=== PATIENT | female | born 1960 | race Caucasian/White ===

== ENCOUNTER 2017-03-17 15:07 | Emergency (ER) | payer SELFPAY | END 2017-03-17 16:11 | disposition home or self-care (01) | LOC: ERS 15:07 | DX: K64.9 Unspecified hemorrhoids (principal); E03.9 Hypothyroidism, unspecified; K58.9 Irritable bowel syndrome, unspecified | CPT/HCPCS: 99283 ==

== ENCOUNTER 2018-08-10 12:03 | Emergency (ER) | payer SELFPAY ==
[2018-08-10] MEDS ORDERED: Fentanyl 100 MCG/2 ML VIAL ONE ×2 (13:11→14:44)
[2018-08-10] MEDS ORDERED: Ondansetron PF 4 MG/2 ML Vial ONE (13:11)
--- NOTE | 2018-08-10 14:29 | RAD ---
Exam:4 views left knee HISTORY: Pain. Injury. COMPARISON: None FINDINGS: No joint effusion. Joint spaces are preserved. No fracture or malalignment. IMPRESSION: Unremarkable left knee 4 views
[2018-08-10] MEDS ORDERED: Ketorolac Tromethamine 30 MG/ML VIAL ONE (14:44)
--- NOTE | 2018-08-10 14:50 | RAD ---
RIGHT WRIST THREE VIEWS: 08/10/18 COMPARISON: 02/10/14 HISTORY: Fall. Pain. FINDINGS: Comminuted, displaced distal radius fracture with intra-articular extension of the fracture. There is associated deformity. With regard to the carpal bones, a definite fracture is not appreciated. IMPRESSION: Distal radius fracture. POS: [facility]
--- NOTE | 2018-08-10 16:05 | RAD ---
RIGHT KNEE 4 VIEWS: HISTORY: Injury, right knee pain. FINDINGS/IMPRESSION: No fracture or dislocation is seen. No joint effusion or hemarthrosis is identified. POS: [facility]
== END 2018-08-10 16:37 | disposition home or self-care (01) ==
LOC: ERS 12:03
DX: S52.571A Other intraarticular fracture of lower end of right radius, initial encounter for closed fracture (principal); S80.212A Abrasion, left knee, initial encounter; S80.211A Abrasion, right knee, initial encounter; W18.30XA Fall on same level, unspecified, initial encounter
CPT/HCPCS: 29125; 96361; 96374; 96375; 96376; J1885; J2405; J3010

== ENCOUNTER 2018-08-11 09:27 | Emergency (ER) | payer SELFPAY ==
--- NOTE | 2018-08-11 12:23 | RAD ---
LEFT ELBOW FOUR VIEWS: 08/11/18 HISTORY: Fall. Pain. Injury. COMPARISON: None. FINDINGS: No fracture. No cortical irregularity or periosteal reaction. Joint spaces are preserved. No joint ef fusion. IMPRESSION: No posttraumatic change. POS: [facility]
== END 2018-08-11 11:10 | disposition home or self-care (01) ==
LOC: ERS 09:27
DX: M25.522 Pain in left elbow (principal); S52.501D Unspecified fracture of the lower end of right radius, subsequent encounter for closed fracture with routine healing

== ENCOUNTER 2018-08-15 08:59 | Day surgery (SDC) | payer SELFPAY ==
[2018-08-12 11:29] VITALS: BMI 21.4
[2018-08-15] MEDS ORDERED: Midazolam HCl 2 mg/2 ml Vial ONE (10:21)
[2018-08-15] MEDS ORDERED: Fentanyl 100 MCG/2 ML VIAL ONE ×2 (10:22→12:02)
[2018-08-15] MEDS ORDERED: Bupivacaine HCl 0.5%/Epinephrine 1:200,000/PF 30 ml Vial ONE (10:27)
[2018-08-15] MEDS ORDERED: Dexamethasone 4 mg/ml Vial ONE (10:53)
[2018-08-15] MEDS ORDERED: Lidocaine 1% PF 5 ML VIAL ONE (11:14)
[2018-08-15] MEDS ORDERED: PROPOFOL 200 MG/20 ML VIAL ONE (11:14)
[2018-08-15] MEDS ORDERED: ePHEDrine 50 MG/ML VIAL ONE (11:14)
[2018-08-15] MEDS ORDERED: Ondansetron PF 4 MG/2 ML Vial ONE (11:14)
[2018-08-15] MEDS ORDERED: Dexamethasone 20 MG/5 ML VIAL ONE (11:14)
[2018-08-15] MEDS ORDERED: Ketorolac Tromethamine 30 MG/ML VIAL ONE (11:14)
[2018-08-15] MEDS ORDERED: Promethazine HCl 25 MG/ML VIAL ONE (12:02)
--- NOTE | 2018-08-15 14:03 | RAD ---
Exam: Right elbow 2 views: HISTORY: Status post ORIF distal right radius FINDINGS: Metal plate and screws are placed stabilizing the distal radial fracture with improved position and a lignment. Nondisplaced ulnar styloid process fracture. IMPRESSION: Improved position and alignment following ORIF right radius.
--- NOTE | 2018-08-15 15:18 | OP ---
DATE OF PROCEDURE: 08/15/2018 PREOPERATIVE DIAGNOSES: 1. Right distal radius fracture, volar. 2. Right carpal tunnel syndrome. POSTOPERATIVE DIAGNOSES: 1. Right distal radius fracture, volar. 2. Right carpal tunnel syndrome. PROCEDURES PERFORMED: 1. Open reduction and internal fixation of right distal radius fracture. 2. Right carpal tunnel release. ANESTHESIA: General. TOURNIQUET TIME: 43 minutes at 250 mmHg. IMPLANTS: Synthes 3-hole 2.4 mm variable angle LCP dual-column volar distal radial plate. COMPLICATIONS: None. DRAINS: None. SPECIMENS: None. OUTCOME: Near-anatomic alignment. INDICATIONS FOR PROCEDURE: The patient is a 58-year-old lady, status post ground level fall sustaining right distal radius fracture. This was found to be a volar displaced fracture originally seen in the emergency room. The patient now taken to the operating room for open reduction and internal fixation for this intra-articular displaced fracture. Preoperatively, the patient also found to have an acute carpal tunnel syndrome with two-point discrimination greater than 15 mm over the median distribution. As such, we will take a look at and possibly release the carpal tunnel at the same time. Informed consent has been obtained. DESCRIPTION OF PROCEDURE: The patient was brought to the operating room and a time-out performed followed by induction of general anesthesia. Next, a sterile prep and drape was performed of the right upper extremity. Next, a curvilinear incision was made following the thenar skin crease and then extending down the volar radial aspect of the wrist. After the skin was sharply incised, dissection was carried down bluntly identifying the neurovascular bundle and reflecting it radially. The palmar fascia was split in line with the skin incision and then the transverse carpal ligament was identified. This was divided with a [place] blade, exposing the underlying median nerve and the thenar branch. Once decompressed, the dissection was then carried further proximally exploiting the interval between the brachioradialis and the flexor carpi radialis. Dissection was carried down to the underlying pronator quadratus. This was released off the radial border of the distal radius and reflected to the midline exposing the underlying fracture. The fracture hematoma was removed from the wound and the edges freed of soft tissue. The fracture was then reduced and held in place manually while AP and lateral C-arm images were obtained to confirm that the fracture could be reduced. Next, a 3-hole plate was applied to the volar cortex of the distal radius. This was held in place with a 2.7-mm cortical screw in the shaft of the plate, getting good compression across the fracture site. Next, a total of four 2.4-mm locking screws were applied across the horizontal limb of the plate and then two additional 2.7 mm screws applied more proximally. AP and lateral C-arm images were obtained with hoahaoism of radial length, radial inclination and volar tilt. The wound was then irrigated with normal saline and closed in layers with 2-0 Vicryl subcutaneously followed by nylon for the skin, both at the carpal tunnel release site as well as at the distal radius fixation site. Next, a Xeroform gauze, Webril, and fiberglass volar splint was applied to the wrist. Tourniquet was let down with total time of 43 minutes. Then, the patient was transferred to recovery room in stable condition. There were no complications. The patient tolerated the procedure well. Job ID: [id number]
== END 2018-08-15 15:55 | disposition home or self-care (01) ==
LOC: SDC 08:59
PROVIDERS: ATTEND Orthopaedic Surgery
PROC: 3E0T33Z Introduction of Anti-inflammatory into Peripheral Nerves and Plexi, Percutaneous Approach (ICD-10-PCS; principal; 2018-08-15)
PROC: 0PSH04Z Reposition Right Radius with Internal Fixation Device, Open Approach (ICD-10-PCS; principal; 2018-08-15)
PROC: 3E0T3BZ Introduction of Anesthetic Agent into Peripheral Nerves and Plexi, Percutaneous Approach (ICD-10-PCS; principal; 2018-08-15)
PROC: 01N50ZZ Release Median Nerve, Open Approach (ICD-10-PCS; principal; 2018-08-15)
DX: S52.571A Other intraarticular fracture of lower end of right radius, initial encounter for closed fracture (principal); S52.614A Nondisplaced fracture of right ulna styloid process, initial encounter for closed fracture; G56.01 Carpal tunnel syndrome, right upper limb; G89.18 Other acute postprocedural pain; W19.XXXA Unspecified fall, initial encounter
CPT/HCPCS: 76000; C1713; J0670; J0690; J1100; J1885; J2001; J2250; J2405; J2550; J2704; J3010; J3490

== ENCOUNTER 2018-11-26 15:29 | Emergency (ER) | payer OTHER ==
[2018-11-26 15:52] LABS: #Basophils 0.1 thou/uL (0.0-0.2); #Eosinphils 0.2 thou/uL (0.0-0.7); #Lymphocytes 1.6 thou/uL (1.20-3.40); #Monocytes 0.4 thou/uL (0.11-0.59); %Basophils 1.1 % (0.0-1.0); %Eosinophils 3.9 % (0.0-10.0); %Lymphocytes 25.6 % (21.0-51.0); %Monocytes 5.8 % (0.0-10.0); %Neutrophils 63.5 % (42.0-75.0); Mean Corpuscular HGB CONC 33.8 g/dL (32.0-36.0); Mean Corpuscular Hemoglobin 29.5 pg (27.0-31.0); Mean Corpuscular Volume 87.4 fL (78.0-98.0); Mean Platelet Volume 8.6 fL (7.4-10.4); Platelet Count 249 thou/uL (130-400); RBC Distribution Width 12.1 % (11.5-14.5); Red Blood Cell (RBC) Count 4.74 mill/uL (4.20-5.40); White Blood Cell (WBC) Count 6.2 thou/uL (4.8-10.8)
[2018-11-26 16:00] LABS: Bacteria/HPF None Seen HPF (None Seen); Bilirubin Negative (Negative); Blood, Urine 1+ (Negative); Clarity Clear (Clear); Glucose, Urine (Dipstick) Normal (Negative); Leukocyte Negative Leu/uL (Negative); Mucous/LPF Rare LPF (<2+); Nitrite Negative (Negative); Protein, Urine (Dipstick) Negative (Neg-Trace); Squamous Epithelial 0-3 HPF (0-3); Urobilinogen Normal mg/dL (Less than 2); WBC/HPF 0-3 HPF (0-3)
[2018-11-26 16:14] LABS: ALT (SGPT) 8 U/L (8-55); AST (SGOT) 17 U/L (5-34); Albumin 4.4 g/dL (3.5-5.0); Alkaline Phosphatase 98 U/L (40-110); Anion Gap 14 mmol/L (10-20); BUN (Urea Nitrogen) 12 mg/dL (9.8-20.1); Bilirubin, Total 0.4 mg/dL (0.2-1.2); Calc. Creatinine Clearance 0 mL/min (70-130); Calcium 9.3 mg/dL (7.8-10.44); Carbon Dioxide 28 mmol/L (22-29); Chloride 103 mmol/L (98-107); Estimated GFR-MDRD 64; Globulin 2.9 g/dL (2.4-3.5); Glucose 108 mg/dL (70-105); Lipase 66 U/L (8-78); Potassium 3.7 mmol/L (3.5-5.1); Protein, Total 7.3 g/dL (6.0-8.3); Sodium 141 mmol/L (136-145)
== END 2018-11-26 17:15 | disposition home or self-care (01) ==
LOC: ERS 15:29
DX: N30.01 Acute cystitis with hematuria (principal); K58.9 Irritable bowel syndrome, unspecified
CPT/HCPCS: 36415; 80053; 81003; 81015; 83690; 85025; 99283